=== PATIENT | male | born 1945 | race Caucasian/White ===

== ENCOUNTER 2024-12-15 06:44 | Day surgery (SDC) | payer MEDICARE, OTHER ==
[2024-12-15 07:10] LABS: PLATELET COUNT,PLT 219.0 K/uL (130-375); RED BLOOD CELL COUNT 4.69 M/uL (4.14-5.76); WHITE BLOOD CELL COUNT,WBC 4.8 K/uL (3.2-11.0)
[2024-12-15 07:26] LABS: BLOOD UREA NITROGEN,BUN 17.0 mg/dL (7-18); CARBON DIOXIDE,CO2 29.0 mmol/L (21-32); CHLORIDE,CL 105.0 mmol/L (100-108); CREATININE 0.9 mg/dL (0.8-1.3); EST CRCL DRUG DOSING (CG) 65.47 mL/min; ESTIMATED GFR 87.0 mL/min (>60); GLUCOSE RANDOM 107.0 mg/dL (74-106); POTASSIUM,K 4.0 mmol/L (3.6-5.2); SODIUM,NA 141.0 mmol/L (140-148)
[2024-12-15] MEDS ORDERED: Propofol 200 MG/20 ML SDV ONE (07:32)
[2024-12-15] MEDS ORDERED: Midazolam 1 MG/ML 2 ML SDV ONE (07:33)
[2024-12-15] MEDS ORDERED: fentaNYL 100 MCG/2 ML SDV ONE (07:33)
[2024-12-15] MEDS: Nozin Nasal Sanitizer NASBOTH ONE (07:47)
[2024-12-15] MEDS: Lactated Ringers 1,000 ML IV SCH (07:47)
== END 2024-12-15 09:45 | disposition home or self-care (01) ==
LOC: JP.SDS 06:44
PROVIDERS: ATTEND Specialist
DX: M65.342 Trigger finger, left ring finger (principal); E66.9 Obesity, unspecified
CPT/HCPCS: 01810-QZ; 36415; 80048; 85027; A9270-GY; J0665; J0690; J2250; J2704; J3010; J7120